=== PATIENT | female | born 1945 | race Caucasian/White ===

== ENCOUNTER 2023-11-05 17:22 | Emergency (ER) | payer MEDICARE, OTHER, SELFPAY ==
[2023-11-05] VITALS (7 sets, daily range): BP systolic 119–121; BP diastolic 58–70; PULSE 79–96; RESP 16–20; TEMP 37.1; O2SAT 90–95; BMI 25.0
--- NOTE | 2023-11-05 17:41 | EKG_ITS ---
[address] [address] Test Date: 2023-11-05 Pat Name: Eunice Ragland Department: Room: Gender: Female Client Architect: Cassidy NUR RN : 1945 Requested By: Order Number: [id number] Reading MD: Castillo Angel MD Measurements Intervals [place] Rate: 95 P: 48 VA: 168 QRS: 7 QRSD: 68 T: 58 QT: 334 QTc: 419 Interpretive Statements Normal sinus rhythm Possible Inferior infarct , age undetermined NO PRIOR TRACING Electronically Signed On 11-05-2023 22:35:39 PDT by Castillo Angel MD
--- NOTE | 2023-11-05 17:41 | DI.RAD.S_ITS ---
PROCEDURE: XR CHEST 1V INDICATIONS: Shortness of breath TECHNIQUE: One view of the chest was acquired. COMPARISON: None. FINDINGS: Surgical changes and devices: Postoperative change of the left shoulder can be seen. Cholecystectomy clips are seen. Lungs and pleura: An incomplete inspiratory result is noted, causing a crowded appearance to the lung markings. No focal infiltrates are seen. Generalized interstitial prominence can be seen. No pneumothorax or significant pleural effusions are seen. Mediastinum: The cardiac contours are within normal limits. The aorta demonstrates calcification and tortuosity. Bones and chest wall: Age-appropriate bony degenerative changes are seen. No suspicious bony lesions. Overlying soft tissues appear unremarkable. IMPRESSION: Generalized interstitial prominence can be seen. Please consider pulmonary edema. Differential diagnosis includes atypical infiltrate, however. Postoperative and degenerative changes are seen. Dictated by: Drew Ruiz M.D. on 11/05/2023 at 17:15 Approved by: Drew Ruiz M.D. on 11/05/2023 at 17:16
[2023-11-05 18:14] LABS: Add Manual Diff / Slide Review NO; Basophils Absolute Auto 100 /uL (0-100); Basophils Percent Auto 0.8 % (0-2); Eosinophils Absolute Auto 200 /uL (0-450); Eosinophils Percent Auto 1.7 % (2-4); Hematocrit 42.4 % (36-46); Hemoglobin 14.5 g/dL (12.0-16.0); Lymphocytes Absolute Auto 1200 /uL (1100-4500); Lymphocytes Percent Auto 9.7 % (25-40); Mean Corpuscular HGB Conc 34.3 % (30-36); Mean Corpuscular Hemoglobin 30.4 PG (26-34); Mean Corpuscular Volume 88.5 fL (80-100); Monocytes Absolute Auto 1300 /uL (0-900); Monocytes Percent Auto 10.1 % (3-14); Neutrophils Absolute Auto 9600 /uL (1500-7000); Neutrophils Percent Auto 77.7 % (50-75); Platelet Count 215 X10^3/uL (150-400); Red Blood Cell Count 4.79 X10^6/uL (4.0-5.2); Red Cell Distribution Width 14.1 % (11.6-14.8); White Blood Cell Count 12.4 X10^3/uL (4.5-11.0)
[2023-11-05 18:19] LABS: INR 1.2 (0.9-1.3); Prothrombin Time 13.6 SECONDS (9.4-12.5)
[2023-11-05 18:22] LABS: Lactate (Lactic Acid) 1.5 mmol/L (0.7-2.1)
[2023-11-05 18:24] LABS: Alanine Aminotransferase 27 IU/L (<35); Albumin 4.1 g/dL (3.5-5.0); Albumin Globulin Ratio 1.2 (1.0-2.8); Alkaline Phosphatase 78 U/L (38-126); Aspartate Aminotransferase 38 IU/L (14-36); BUN Creatinine Ratio 21.6 (6-22); Bilirubin Total 1.1 mg/dL (0.2-1.3); Blood Urea Nitrogen 16 mg/dL (7-17); Calcium 9.6 mg/dL (8.4-10.2); Carbon Dioxide 24 mmol/L (22-32); Chloride 102 mmol/L (98-107); Estimated Glomerular Filt Rate > 60 mL/min (>60); Globulin 3.3 g/dL (1.7-4.1); Glucose 146 mg/dL (80-110); HEMOLYSIS < 15 (0-50); Potassium 4.4 mmol/L (3.4-5.1); Sodium 132 mmol/L (137-145); Total Protein 7.4 g/dL (6.3-8.2)
--- NOTE | 2023-11-05 18:29 | ED_ITS ---
HPI - Abdominal Pain General Chief Complaint: Abdominal Pain Stated Complaint: abd pain Time Seen by Provider: 11/05/23 17:58 Source: patient Mode of arrival: Ambulatory History of Present Illness HPI narrative: 78-year-old female with history of lung cancer status post right lower lobe lobectomy (in remission 6 years), history of valley fever treated with antifungals presents by private vehicle for 4 days of nausea and generalized abdominal pain. Patient states that she has not had very much to eat in the last few days because she has felt lousy and does not want to eat. Also reporting intermittent fevers at home. After 4 days of feeling poorly at home her family convinced her to seek evaluation in the emergency department. Patient states that she felt similar to this several years ago when she was diagnosed with walking pneumonia. Took a home COVID-19 test prior to arrival which was negative. Patient was from [place] and is here on vacation. Surgical history includes cholecystectomy and appendectomy Related Data Previous Rx's Medication Instructions Recorded albuterol sulfate 2.5 mg/3 mL 2.5 mg (3 mL) inhalation Q4-6H PRN 11/05/23 (0.083 %) solution for nebulization shortness of breath or wheezing #90 mL azithromycin 250 mg tablet See Rx Instructions PO .COMPLEX #6 11/05/23 tabs dicyclomine 10 mg capsule 10 mg PO TID #30 caps 11/05/23 nebulizers (Compact Compressor #1 ea 11/05/23 Nebulizer) ondansetron 4 mg disintegrating 4 mg PO Q8H PRN nausea and 11/05/23 tablet vomiting #30 tabs Allergies Allergy/AdvReac Type Severity Reaction Status Date / Time No Known Drug Allergies Allergy Verified 11/05/23 17:41 Patient History Social History Smoking Status: Never smoker Smoking Status: Never smoker Exam Initial Vital Signs Initial Vital Signs: Vital Signs Temperature 98.7 F 11/05/23 17:31 Pulse Rate 79 11/05/23 17:31 Respiratory Rate 16 11/05/23 17:31 Blood Pressure 119/70 11/05/23 17:31 Pulse Oximetry 90 L 11/05/23 17:31 Oxygen Delivery Method Room Air 11/05/23 17:31 Const: Awake, alert, no acute distress, nontoxic appearing Cardiac: regular rate, regular rhythm RESP: unlabored, clear bilaterally, no wheezing GI: Soft, nontender, nondistended, no rebound, no guarding MSK: Atraumatic, full range of motion, pulses equal Skin: Warm, Dry, intact, no rashes Neuro: AO x3, CN II-XII grossly intact, moves all extremities Course Orders Ordered: ED Orders 11/05/23 17:41 XR chest 1V Stat EKG-12 Lead Stat Measure peak expiratory flow ONCE RT Consult Eval and Treat NOW 11/05/23 17:43 Respiratory Panel (Film Array) Stat 11/05/23 18:00 Complete Blood Count AUTO DIFF Stat Comprehensive Metabolic Panel Stat Lactate (Lactic Acid) Stat Lipase Stat NT-proBNP (BNP-Adult 18+) Stat Prothrombin Time INR Stat Troponin I Stat Urine Microscopic Stat 11/05/23 18:28 CT abdomen pelvis w con Stat Discontinued Medications Albuterol/Ipratropium (Albuterol/Ipratropium 3 Ml Ampul) 3 ml INH NOW ONE Stop: 11/05/23 19:21 Sodium Chloride (Normal Saline 0.9%) 1,000 mls @ 1,000 mls/hr IV BOLUS ONE Stop: 11/05/23 19:28 Last Infusion: 11/05/23 20:04 Dose: Infused Documented By: Admin: 11/05/23 18:49 Dose: 1,000 mls/hr Documented By: GARRETT Ondansetron HCl (Ondansetron 4 Mg/2 Ml Inj) 4 mg IV NOW ONE Stop: 11/05/23 18:30 Last Admin: 11/05/23 18:50 Dose: 4 mg Documented By: GARRETT Vital Signs Vital signs: Vital Signs - 8 hr 11/05/23 17:31 11/05/23 18:52 11/05/23 18:54 Temperature 98.7 F Pulse Rate 79 93 H Respiratory Rate 16 Blood Pressure 119/70 Pulse Oximetry 90 L 95 Oxygen Delivery Method Room Air Fraction of Inspired Oxygen 11/05/23 18:54 11/05/23 19:08 11/05/23 19:30 Temperature Pulse Rate 96 H 93 H Respiratory Rate Blood Pressure 121/58 L Pulse Oximetry 94 Oxygen Delivery Method Fraction of Inspired Oxygen 11/05/23 19:40 11/05/23 20:00 Temperature Pulse Rate 90 92 H Respiratory Rate 20 Blood Pressure Pulse Oximetry 93 94 Oxygen Delivery Method Room Air Fraction of Inspired Oxygen 21 MDM - Abdominal Pain Lab Data 11/05/23 18:00 11/05/23 18:00 Labs: Lab Results 11/05/23 11/05/23 Range/Units 17:43 18:00 WBC 12.4 H (4.5-11.0) X10^3/uL RBC 4.79 (4.0-5.2) X10^6/uL Hgb 14.5 (12.0-16.0) g/dL Hct 42.4 (36-46) % MCV 88.5 (80-100) fL MCH 30.4 (26-34) PG MCHC 34.3 (30-36) % RDW 14.1 (11.6-14.8) % Plt Count 215 (150-400) X10^3/uL Neut % (Auto) 77.7 H (50-75) % Lymph % (Auto) 9.7 L (25-40) % [place] % (Auto) 10.1 (3-14) % Eos % (Auto) 1.7 L (2-4) % Baso % (Auto) 0.8 (0-2) % Neut # (Auto) 9600 H (1880-0970) /uL Lymph # (Auto) 1200 (7835-3338) /uL [place] # (Auto) 1300 H (0-900) /uL Eos # (Auto) 200 (0-450) /uL Baso # (Auto) 100 (0-100) /uL PT 13.6 H (9.4-12.5) SECONDS INR 1.2 (0.9-1.3) Sodium 132 L (137-145) mmol/L Potassium 4.4 (3.4-5.1) mmol/L Chloride 102 (98-107) mmol/L Carbon Dioxide 24 (22-32) mmol/L BUN 16 (7-17) mg/dL Creatinine 0.74 (0.52-1.04) mg/dL Estimated GFR > 60 (>60) mL/min BUN/Creatinine Ratio 21.6 (6-22) Glucose 146 H (80-110) mg/dL Lactate 1.5 (0.7-2.1) mmol/L Calcium 9.6 (8.4-10.2) mg/dL Total Bilirubin 1.1 (0.2-1.3) mg/dL AST 38 H (14-36) IU/L ALT 27 (<35) IU/L Alkaline Phosphatase 78 (38-126) U/L Troponin I < 0.012 (0.01-0.034) ng/mL NT-Pro-B Natriuret Pep 177 (<450) pg/mL Total Protein 7.4 (6.3-8.2) g/dL Albumin 4.1 (3.5-5.0) g/dL Globulin 3.3 (1.7-4.1) g/dL Albumin/Globulin Ratio 1.2 (1.0-2.8) Lipase 30 (23-300) U/L Urine RBC None seen (0-5/HPF) Urine WBC None seen (0-5/HPF) Ur Squamous Epith Cells 0-1 /hpf (0-5/HPF) Urine Bacteria Occasional (0-1) (None) Ur Culture Indicated? Cult not indicated Vol Urine Centrifuged Low vol <10ml (spun) A Chlamy pneumoniae PCR Not detected (Not Detect) Adenovirus (PCR) Not detected (Not Detect) B.parapertussis DNA PCR Not detected (Not Detecte) Coronavirus OC43 (PCR) Not detected (Not Detect) Coronavirus HKU1 (PCR) Not detected (Not Detect) Coronavirus 229E (PCR) Not detected (Not Detect) SARS-CoV-2 (PCR) Not detected (Not Detecte) Coronavirus NL63 (PCR) Not detected (Not Detect) Human Metapneumovir PCR Not detected (Not Detect) Influenza Type A (PCR) Not detected (Not Detect) Influenza Type B (PCR) Not detected (Not Detect) M. pneumoniae (PCR) Not detected (Not Detect) Parainfluenza 1 (PCR) Not detected (Not Detect) Parainfluenza 2 (PCR) Not detected (Not Detect) Parainfluenza 3 (PCR) Not detected (Not Detect) Parainfluenza 4 (PCR) Not detected (Not Detect) RSV (PCR) Not detected (Not Detect) Entero/Rhino (PCR) Not detected (Not Detect) Point of care testing: Urine Dip Bedside Urine Glucose Negative Bedside Urine Bilirubin - Negative Bedside Urine Ketone - Negative Urine Specific [place] 1.015 Bedside Urine Occult Blood - Negative Bedside Urine pH 6.0 Bedside Urine Protein +/- 15 Bedside Urine Nitrite - Negative Bedside Urine Leukocytes +/- [address] scan - abdomen/pelvis: Radiologist's Impression: ADDENDUMThis report includes an Addendum and supersedes previous reports for this exam. PROCEDURE: CT ABDOMEN PELVIS W CON INDICATIONS: RUQ/MIDEPIGASTRIC ABD PAIN X4 DAYS, PREV CHOLECYSTECTOMY TECHNIQUE: After the administration of intravenous contrast, axial sections acquired from the lung bases to the pubic symphysis. Coronal and sagittal reformats were performed. For radiation dose reduction, the following was used: automated exposure control, adjustment of mA and/or kV according to patient size. COMPARISON: [facility], CR, XR CHEST 1V, 11/05/2023, 17:41. FINDINGS: Image quality: Diagnostic. Lower Chest: Patchy ground-glass opacities can be seen at the lung bases. The heart size is within normal limits. ABDOMEN: Liver: No solid mass. Gallbladder: Mac row cholecystectomy. Biliary ducts: No biliary dilation. Pancreas: No ductal dilation. Spleen: Size is within normal limits. Adrenal Glands: No adrenal nodules. Kidneys and Ureters: No hydronephrosis. No solid mass. No complex renal cystic lesion which requires follow up. Stomach and Bowel: Normal colonic caliber, without significant wall thickening. Colonic diverticulosis is seen, without findings of active diverticulitis. Peritoneum: No abnormal intraperitoneal fluid. No free air. Ventral Wall: No significant ventral hernia. Abdominal Nodes: No retroperitoneal or mesenteric adenopathy by size criteria. Vessels: Within the proximal abdominal aorta, there is a saccular aneurysm measuring 5.2 cm AP x 4.8 cm transversely, with a craniocaudal extent of 5.2 cm. There is moderate mural thrombus seen . PELVIS: Pelvic Organs: Unremarkable. Bladder: No bladder wall thickening, accounting for underdistention. Pelvic Nodes: No enlarged lymph nodes. Miscellaneous: No inguinal hernias are seen. Bones: No aggressive osseous abnormality. Age-appropriate bony degenerative changes are seen. Mild dextroconvex scoliotic curvature is seen. 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 Patchy ground-glass opacities can be seen at the lung bases. Please consider pulmonary edema. Prior cholecystectomy, without biliary dilatation. Additional findings: Hysterectomy Diverticulosis, without active diverticulitis Dictated by: Drew Ruiz M.D. on 11/05/2023 at 18:18 Approved by: Drew Ruiz M.D. on 11/05/2023 at 18:22 ADDENDUM: This case was reviewed at the request of Dr. Fernandez and discussed by telephone at 7:35 p.m. [place] time on November 05, 2023. The aneurysm is reviewed. No surrounding inflammatory change can be seen. It is felt most likely that this aneurysm is a chronic incidental process. However, this cannot be said with certainty based upon these imaging findings. Dictated by: Drew Ruiz M.D. on 11/05/2023 at 18:36 Approved by: Drew Ruiz M.D. on 11/05/2023 at 18:37 Chest x-ray: Radiologist's Impression: PROCEDURE: XR CHEST 1V INDICATIONS: Shortness of breath TECHNIQUE: One view of the chest was acquired. COMPARISON: None. FINDINGS: Surgical changes and devices: Postoperative change of the left shoulder can be seen. Cholecystectomy clips are seen. Lungs and pleura: An incomplete inspiratory result is noted, causing a crowded appearance to the lung markings. No focal infiltrates are seen. Generalized interstitial prominence can be seen. No pneumothorax or significant pleural effusions are seen. Mediastinum: The cardiac contours are within normal limits. The aorta demonstrates calcification and tortuosity. Bones and chest wall: Age-appropriate bony degenerative changes are seen. No suspicious bony lesions. Overlying soft tissues appear unremarkable. IMPRESSION: Generalized interstitial prominence can be seen. Please consider pulmonary edema. Differential diagnosis includes atypical infiltrate, however. Postoperative and degenerative changes are seen. Dictated by: Drew Ruiz M.D. on 11/05/2023 at 17:15 Approved by: Drew Ruiz M.D. on 11/05/2023 at 17:16 MDM Narrative Medical decision making narrative: Nontoxic appearing patient with several days of symptoms. Initial room oxygen saturations were in the upper 80s to low 90s, however fingers were cold and when pulse ox applied to earlobe saturations improved on room air. Abdomen is soft but she was generally tender to palpation particularly in the upper quadrants. Patient denies urinary symptoms including dysuria, frequency, or hematuria. Laboratory work shows WBC count 12.4, hemoglobin 14.5, platelet count 215, sodium 132, potassium 4.4, creatinine 0.74, lactic acid 1.5, troponin undetectable, BNP with 77. Chest x-ray with diffuse interstitial findings. CT of the abdomen and pelvis shows saccular aneurysm with mural thrombus present. Discussed with Radiology, no surrounding inflammatory changes to suggest acute process. All lab and imaging findings discussed with the patient and her at bedside. Patient and her state that patient's aneurysm is well known to them and followed closely by vascular surgery. She states that her measurements today are unchanged from her chronic measurements, most recently taken in August of 20[address] prior to her road trip up to [place]. Patient reports feeling improved after receiving albuterol and Zofran. Uncertain etiology of patient's abdominal symptoms at this time, however patient states that she is comfortable going home and will return if symptoms worsen. Since patient has interstitial markings on x-ray and felt similar to when she had walking pneumonia several years ago a Z-Abhishek sent to pharmacy of choice along with refills of nebulizers. Patient also requested a nebulizer machine, which was sent to her pharmacy of choice in the region. Discharge Plan Departure Patient Disposition: Home Clinical Impression: Abdominal pain, Nausea Instructions: DI for Abdominal Pain-Adult Activity Restrictions/Additional Instructions: Your laboratory work today did not show any significant concerning findings. Your CT scan did show an aneurysm in your abdomen, which you told me is very well known to you and followed by your vascular surgeon in [place]. There may possibly be infection in your chest, given your history of walking pneumonia a Z-Abhishek was sent to your pharmacy as well as nebulizer vials. Please make sure that you follow up with your specialist when you go back home to [place]. If you feel worse or not improving please feel free to return to the emergency department for repeat evaluation. RX sent to [facility] Prescriptions: New azithromycin 250 mg tablet See Rx Instructions .ROUTE .COMPLEX Qty: 6 0RF Rx Instructions: For 250 mg dose pack: take 500 mg today (day 1), then 250 mg for 4 days (days 2-5) ondansetron 4 mg tablet,disintegrating 4 mg PO Q8H PRN (Reason: nausea and vomiting) Qty: 30 0RF dicyclomine 10 mg capsule 10 mg PO TID Qty: 30 0RF albuterol sulfate 2.5 mg /3 mL (0.083 %) solution for nebulization 2.5 mg inhalation Q4-6H PRN (Reason: shortness of breath or wheezing) Qty: 90 0RF (DME) nebulizers [Compact Compressor Nebulizer] Misc See Rx Instructions .Route Qty: 1 0RF Rx Instructions: As directed Referrals: Miscellaneous,Doctor, MD [Primary Care Provider] - Stand Alone Forms: Patient Portal/API
[2023-11-05 18:35] LABS: NT-proBNP (BNP-Adult 18+) 177 pg/mL (<450); Troponin I < 0.012 ng/mL (0.01-0.034)
[2023-11-05 18:36] LABS: Adenovirus Not Detected (Not Detect); B. parapertussis Not Detected (Not Detecte); Bordetella pertussis Not Detected (Not Detect); Chlamydophila pneumoniae Not Detected (Not Detect); Coronavirus 229E Not Detected (Not Detect); Coronavirus HKU1 Not Detected (Not Detect); Coronavirus NL 63 Not Detected (Not Detect); Coronavirus OC43 Not Detected (Not Detect); Human Metapneumovirus Not Detected (Not Detect); Human Rhinovirus/Enterovirus Not Detected (Not Detect); Influenza A Not Detected (Not Detect); Influenza B Not Detected (Not Detect); Mycoplasma pneumoniae Not Detected (Not Detect); Parainfluenza Virus 1 Not Detected (Not Detect); Parainfluenza Virus 2 Not Detected (Not Detect); Parainfluenza Virus 3 Not Detected (Not Detect); Parainfluenza Virus 4 Not Detected (Not Detect); Respiratory Syncytial Virus Not Detected (Not Detect); SARS- CoV-2 Not Detected (Not Detecte)
[2023-11-05 18:44] LABS: Lipase 30 U/L (23-300)
[2023-11-05] MEDS: SODIUM CHLORIDE 0.9% 1,000 ML 1000 ML IV (18:49)
[2023-11-05] MEDS: ONDANSETRON 4 MG/2 ML INJ IV (18:50)
--- NOTE | 2023-11-05 19:35 | PC.NURSE ---
Patient's pulse ox reading 87-88% RA with finger probe. Transitioned to ear probe and pulse ox 94% on RA.
[2023-11-05 20:28] LABS: RBC Urine None Seen (0-5/HPF); Urine Volume Low Vol <10mL (spun)
[2023-11-05 20:29] LABS: Bacteria Urine Occasional (0-1); Culture Indicated Urine Cult Not Indicated; Squamous Epithelial Cell Urine 0-1 /HPF (0-5/HPF); WBC Urine None Seen (0-5/HPF)
== END 2023-11-05 20:23 | disposition home or self-care (01) ==
PROVIDERS: Emergency Medicine; Emergency Provider Emergency Medicine
DX: R10.84 Generalized abdominal pain (principal); R11.0 Nausea; R50.9 Fever, unspecified; Z11.52 Encounter for screening for COVID-19
CPT/HCPCS: 36415; 71045; 74177; 80053; 81003; 81015; 83605; 83690; 83880; 84484; 85025; 85610; 87633; 93005; 94150; 94640; 99284; J2405; Q9967

== ENCOUNTER 2023-11-10 09:37 | Emergency (ER) | payer MEDICARE, OTHER, SELFPAY ==
[2023-11-10] VITALS (17 sets, daily range): BP systolic 110–130; BP diastolic 59–68; PULSE 67–76; RESP 21–32; TEMP 36.4; O2SAT 84–96; BMI 25.0
--- NOTE | 2023-11-10 09:57 | EKG_ITS ---
[address] [address] Test Date: 2023-11-10 Pat Name: Eunice Ragland Department: [facility] Room: Gender: Female [place]: MINDI : 1945 Requested By: Order Number: [id number] Reading MD: Castillo Angel MD Measurements Intervals [place] Rate: 70 P: 49 [place]: 186 QRS: -7 QRSD: 66 T: 28 QT: 416 QTc: 449 Interpretive Statements Normal sinus rhythm Inferior infarct , age undetermined Electronically Signed On 11-10-2023 11:12:52 PDT by Castillo Angel MD
[2023-11-10] MEDS: ALBUTEROL/IPRATROPIUM 3 ML AMPUL INH (10:16)
--- NOTE | 2023-11-10 10:19 | DI.RAD.S_ITS ---
PROCEDURE: XR CHEST 1V INDICATIONS: Shortness of breath TECHNIQUE: One view of the chest was acquired. COMPARISON: [facility], CR, XR CHEST 1V, 11/05/2023, 17:41. FINDINGS: Surgical changes and devices: Left shoulder suture anchor. Cholecystectomy clips. Lungs and pleura: Small right pleural effusion. Bilateral lung perihilar predominant opacities. Mediastinum: Mediastinal contours appear normal. Heart size is normal. Bones and chest wall: No suspicious bony lesions. Overlying soft tissues appear unremarkable. IMPRESSION: Bilateral lung, perihilar predominant airspace opacities which could represent pulmonary edema and/or multifocal pneumonia. Small right pleural effusion. Dictated by: Ele Ramirez MD, PhD on 11/10/2023 at 10:57 Approved by: Ele Ramirez MD, PhD on 11/10/2023 at 10:58
--- NOTE | 2023-11-10 10:24 | ED.GENADULT ---
HPI - General Adult General Chief complaint: Shortness of Breath/Dyspnea Stated complaint: sick to stomach nausea pills not working Time Seen by Provider: 11/10/23 09:54 Source: patient and family Mode of arrival: Ambulatory History of Present Illness HPI narrative: Patient is a 78-year-old female. 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 was seen here in the emergency department a couple days ago and had a fairly extensive workup and subsequently discharged home. She was here with continued nausea, fatigue, problems breathing, chest discomfort been generally not feeling very well. She has a known aortic aneurism. Has a history of lung cancer. She was currently on azithromycin and steroids. She was here today because she was very fatigued and could not get out of bed this morning. Related Data Previous Rx's Medication Instructions Recorded albuterol sulfate 2.5 mg/3 mL 2.5 mg (3 mL) inhalation Q4-6H PRN 11/05/23 (0.083 %) solution for nebulization shortness of breath or wheezing #90 mL azithromycin 250 mg tablet See Rx Instructions PO .COMPLEX #6 11/05/23 tabs dicyclomine 10 mg capsule 10 mg PO TID #30 caps 11/05/23 nebulizers (Compact Compressor #1 ea 11/05/23 Nebulizer) ondansetron 4 mg disintegrating 4 mg PO Q8H PRN nausea and 11/05/23 tablet vomiting #30 tabs Allergies Allergy/AdvReac Type Severity Reaction Status Date / Time No Known Drug Allergies Allergy Verified 11/10/23 10:01 Review of Systems Review of Systems ROS Unobtainable: All systems reviewed & are unremarkable except as noted in HPI and below Patient History Social History Smoking Status: Never smoker Smoking Status: Never smoker Substance Use Type: does not use Exam Initial Vital Signs Initial Vital Signs: Vital Signs Pulse Rate 74 11/10/23 09:52 Pulse Oximetry 88 L 11/10/23 09:52 Oxygen Delivery Method Nasal Cannula 11/10/23 09:52 Oxygen Flow Rate 2 11/10/23 09:52 Const General: cooperative, comfortable and No ill appearing HENMT Head: normal to inspection and normocephalic Resp Effort & Inspection: normal respiratory effort Auscultation: clear to auscultation bilaterally Cardio Rate: regular rate Rhythm: regular rhythm GI Inspection: normal to inspection and non-distended Skin General: no rashes or lesions noted Neuro General: patient alert, patient awake and moves all extremities Extrem General: normal to inspection Course Orders Ordered: ED Orders 11/10/23 09:57 EKG-12 Lead Stat 11/10/23 10:14 Covid-19 + FLU A/B + RSV - PCR Stat 11/10/23 10:19 XR chest 1V Stat 11/10/23 10:25 BNP [NT-proBNP (BNP-Adult 18+)] Stat Complete Blood Count AUTO DIFF Stat Comprehensive Metabolic Panel Stat Lactate (Lactic Acid) Stat Lipase Stat PTT Partial Thromboplastin Real Stat Prothrombin Time INR Stat Troponin & CK Cardiac Panel Stat Troponin & CK Cardiac Panel Stat 11/10/23 11:10 CT angio chest PE protocol Stat 11/10/23 12:28 Urine Culture Stat Urine Microscopic Stat 11/10/23 18:30 PTT Partial Thromboplastin Real Q6H 11/10/23 19:00 PTT Partial Thromboplastin Real Q6H 11/11/23 00:30 PTT Partial Thromboplastin Real Q6H 11/11/23 05:00 Hemoglobin and Hematocrit DAILY Platelet Count DAILY 11/11/23 06:30 PTT Partial Thromboplastin Real Q6H 11/12/23 05:00 Hemoglobin and Hematocrit DAILY Platelet Count DAILY Heparin Sodium/Dextrose (Heparin Drip) 25,000 unit in 500 mls @ 24.494 mls/hr IV CONT PAYAM; Protocol Last Admin: 11/10/23 12:57 Dose: 18 units/kg/hr, 24.494 mls/hr Documented By: CHARLA Co-signed By: WALLACE Discontinued Medications Acetaminophen (Acetaminophen 325 Mg Tablet) 650 mg PO NOW ONE Stop: 11/10/23 12:38 Last Admin: 11/10/23 12:57 Dose: 650 mg Documented By: CHARLA Albuterol/Ipratropium (Albuterol/Ipratropium 3 Ml Ampul) 3 ml INH NOW ONE Stop: 11/10/23 10:14 Last Admin: 11/10/23 10:16 Dose: 3 ml Documented By: KAT Heparin Sodium (Porcine) (Heparin 5,000 Unit/Ml Vial) 5,500 unit 80 unit/kg (5500 unit) IV NOW ONE Stop: 11/10/23 12:21 Last Admin: 11/10/23 12:59 Dose: 5,500 unit Documented By: CHARLA Sodium Chloride (Normal Saline 0.9%) 1,000 mls @ 500 mls/hr IV BOLUS ONE Stop: 11/10/23 11:55 Last Infusion: 11/10/23 13:05 Dose: Infused Documented By: Admin: 11/10/23 10:32 Dose: 500 mls/hr Documented By: CHARLA Ondansetron HCl (Ondansetron 4 Mg/2 Ml Inj) 4 mg IV NOW ONE Stop: 11/10/23 09:58 Last Admin: 11/10/23 10:32 Dose: 4 mg Documented By: CHARLA Vital Signs Vital signs: Vital Signs - 8 hr 11/10/23 09:52 11/10/23 09:55 11/10/23 10:00 Temperature 97.5 F L Pulse Rate 74 75 70 Respiratory Rate 22 24 Blood Pressure 130/62 Pulse Oximetry 88 L 85 L 95 Oxygen Delivery Method Nasal Cannula Room Air Nasal Cannula Oxygen Flow Rate 2 2 11/10/23 10:16 11/10/23 10:30 11/10/23 11:00 Temperature Pulse Rate 71 67 67 Respiratory Rate 22 28 H 26 H Blood Pressure Pulse Oximetry 96 94 92 Oxygen Delivery Method Nasal Cannula Nasal Cannula Oxygen Flow Rate 2 2 11/10/23 11:30 11/10/23 11:59 11/10/23 11:59 Temperature Pulse Rate 70 74 Respiratory Rate 32 H 22 Blood Pressure 129/60 Pulse Oximetry 92 85 L Oxygen Delivery Method Nasal Cannula Oxygen Flow Rate 2 11/10/23 12:00 11/10/23 12:00 11/10/23 12:30 Temperature Pulse Rate 74 76 Respiratory Rate 25 H 23 Blood Pressure 127/61 Pulse Oximetry 92 84 L Oxygen Delivery Method Nasal Cannula Nasal Cannula Oxygen Flow Rate 2 2 11/10/23 13:00 11/10/23 13:01 11/10/23 13:01 Temperature Pulse Rate 74 75 Respiratory Rate 27 H 27 H Blood Pressure 113/61 Pulse Oximetry 95 94 Oxygen Delivery Method Nasal Cannula Oxygen Flow Rate 2 11/10/23 13:30 11/10/23 14:00 11/10/23 14:08 Temperature Pulse Rate 75 73 71 Respiratory Rate 25 H 25 H 21 Blood Pressure Pulse Oximetry 93 94 93 Oxygen Delivery Method Nasal Cannula Oxygen Flow Rate 2 11/10/23 14:08 11/10/23 14:30 11/10/23 14:30 Temperature Pulse Rate 70 Respiratory Rate 28 H Blood Pressure 116/59 L 119/67 Pulse Oximetry 92 Oxygen Delivery Method Oxygen Flow Rate Medical Decision Making Lab Data Lab results reviewed: Yes I reviewed the patient's lab results. 11/10/23 10:25 11/10/23 10:25 Labs: Lab Results 11/10/23 11/10/23 11/10/23 Range/Units 10:14 10:25 10:25 WBC 13.7 H (4.5-11.0) X10^3/uL RBC 4.33 (4.0-5.2) X10^6/uL Hgb 13.1 (12.0-16.0) g/dL Hct 38.5 (36-46) % MCV 89.0 (80-100) fL MCH 30.2 (26-34) PG MCHC 33.9 (30-36) % RDW 14.1 (11.6-14.8) % Plt Count 215 (150-400) X10^3/uL Neut % (Auto) 87.6 H (50-75) % Lymph % (Auto) 6.0 L (25-40) % [place] % (Auto) 5.7 (3-14) % Eos % (Auto) 0.4 L (2-4) % Baso % (Auto) 0.3 (0-2) % Neut # (Auto) 01268 H (3153-2557) /uL Lymph # (Auto) 800 L (2138-8181) /uL [place] # (Auto) 800 (0-900) /uL Eos # (Auto) 100 (0-450) /uL Baso # (Auto) 0 (0-100) /uL PT 15.2 H (9.4-12.5) SECONDS INR 1.3 (0.9-1.3) APTT 27 (25.1-36.5) SECONDS Sodium 131 L (137-145) mmol/L Potassium 5.0 (3.4-5.1) mmol/L Chloride 101 (98-107) mmol/L Carbon Dioxide 24 (22-32) mmol/L BUN 29 H (7-17) mg/dL Creatinine 0.80 (0.52-1.04) mg/dL Estimated GFR > 60 (>60) mL/min BUN/Creatinine Ratio 36.3 H (6-22) Glucose 179 H (80-110) mg/dL Lactate 1.8 (0.7-2.1) mmol/L Calcium 8.6 (8.4-10.2) mg/dL Total Bilirubin 1.2 (0.2-1.3) mg/dL AST 105 H (14-36) IU/L ALT 126 H (<35) IU/L Alkaline Phosphatase 102 (38-126) U/L Total Creatine Kinase 63 64 (30-135) U/L Troponin I 0.149 H* (0.01-0.034) ng/mL NT-Pro-B Natriuret Pep (<450) pg/mL Total Protein (6.3-8.2) g/dL Albumin (3.5-5.0) g/dL Globulin (1.7-4.1) g/dL Albumin/Globulin Ratio (1.0-2.8) Lipase (23-300) U/L Urine RBC (0-5/HPF) Urine WBC (0-5/HPF) Ur Squamous Epith Cells (0-5/HPF) Urine Bacteria (None) Ur Culture Indicated? Vol Urine Centrifuged SARS-CoV-2 (PCR) Negative (Negative) Influenza A (RT-PCR) Flu a negative (NEGATIVE) Influenza B (RT-PCR) Flu b negative (NEGATIVE) RSV (PCR) Negative (Negative) 11/10/23 11/10/23 Range/Units 10:25 12:28 WBC (4.5-11.0) X10^3/uL RBC (4.0-5.2) X10^6/uL Hgb (12.0-16.0) g/dL Hct (36-46) % MCV (80-100) fL MCH (26-34) PG MCHC (30-36) % RDW (11.6-14.8) % Plt Count (150-400) X10^3/uL Neut % (Auto) (50-75) % Lymph % (Auto) (25-40) % [place] % (Auto) (3-14) % Eos % (Auto) (2-4) % Baso % (Auto) (0-2) % Neut # (Auto) (1577-2009) /uL Lymph # (Auto) (0503-2723) /uL [place] # (Auto) (0-900) /uL Eos # (Auto) (0-450) /uL Baso # (Auto) (0-100) /uL PT (9.4-12.5) SECONDS INR (0.9-1.3) APTT (25.1-36.5) SECONDS Sodium (137-145) mmol/L Potassium (3.4-5.1) mmol/L Chloride (98-107) mmol/L Carbon Dioxide (22-32) mmol/L BUN (7-17) mg/dL Creatinine (0.52-1.04) mg/dL Estimated GFR (>60) mL/min BUN/Creatinine Ratio (6-22) Glucose (80-110) mg/dL Lactate (0.7-2.1) mmol/L Calcium (8.4-10.2) mg/dL Total Bilirubin (0.2-1.3) mg/dL AST (14-36) IU/L ALT (<35) IU/L Alkaline Phosphatase (38-126) U/L Total Creatine Kinase (30-135) U/L Troponin I 0.152 H* (0.01-0.034) ng/mL NT-Pro-B Natriuret Pep 1530 H (<450) pg/mL Total Protein 6.6 (6.3-8.2) g/dL Albumin 3.4 L (3.5-5.0) g/dL Globulin 3.2 (1.7-4.1) g/dL Albumin/Globulin Ratio 1.1 (1.0-2.8) Lipase 62 D (23-300) U/L Urine RBC None seen (0-5/HPF) Urine WBC 5-10/hpf H (0-5/HPF) Ur Squamous Epith Cells 10-30 /hpf H D (0-5/HPF) Urine Bacteria Many (>30) H (None) Ur Culture Indicated? Specimen cultured Vol Urine Centrifuged 10ml (spun) SARS-CoV-2 (PCR) (Negative) Influenza A (RT-PCR) (NEGATIVE) Influenza B (RT-PCR) (NEGATIVE) RSV (PCR) (Negative) Urine Dip Bedside Urine Glucose Negative Bedside Urine Bilirubin - Negative Bedside Urine Ketone - Negative Urine Specific [place] 1.010 Bedside Urine Occult Blood - Negative Bedside Urine pH 6.0 Bedside Urine Protein - Negative Bedside Urine Urobilinogen - Negative Bedside Urine Nitrite - Negative Bedside Urine Leukocytes +/- 15 Esterase Point of care testing: Urine Dip Bedside Urine Glucose Negative Bedside Urine Bilirubin - Negative Bedside Urine Ketone - Negative Urine Specific [place] 1.010 Bedside Urine Occult Blood - Negative Bedside Urine pH 6.0 Bedside Urine Protein - Negative Bedside Urine Urobilinogen - Negative Bedside Urine Nitrite - Negative Bedside Urine Leukocytes +/- 15 Esterase Imaging Data Chest x-ray: Radiologist's Impression: ROCEDURE: XR CHEST 1V INDICATIONS: Shortness of breath TECHNIQUE: One view of the chest was acquired. COMPARISON: [facility], CR, XR CHEST 1V, 11/05/2023, 17:41. FINDINGS: Surgical changes and devices: Left shoulder suture anchor. Cholecystectomy clips. Lungs and pleura: Small right pleural effusion. Bilateral lung perihilar predominant opacities. Mediastinum: Mediastinal contours appear normal. Heart size is normal. Bones and chest wall: No suspicious bony lesions. Overlying soft tissues appear unremarkable. IMPRESSION: Bilateral lung, perihilar predominant airspace opacities which could represent pulmonary edema and/or multifocal pneumonia. Small right pleural effusion. CT scan - chest: Radiologist's Impression: PROCEDURE: CT ANGIO CHEST PE PROTOCOL INDICATIONS: Chest pain, shortness of breath, tachycardia TECHNIQUE: After the administration of intravenous contrast, 2 mm thick sections acquired from the pulmonary apices to the posterior costophrenic angles. 3-dimensional maximum intensity projection (MIP) coronal and sagittal reformats were then acquired through the thorax. For radiation dose reduction, the following was used: automated exposure control, adjustment of mA and/or kV according to patient size. COMPARISON: [facility], CT, CT ABDOMEN PELVIS W CON, 11/05/2023, 18:50. FINDINGS: Image quality: Diagnostic. Pulmonary arteries: Intermediate sized saddle embolus in the right pulmonary artery extending into the right upper lobe are and right middle lobar pulmonary arteries. Lower Neck: No enlarged lymph nodes. Thyroid: No thyroid nodules which require sonographic follow up, per consensus guidelines. Axillae: No enlarged lymph nodes. Chest Wall: Unremarkable. Bones: Unremarkable. Lungs and Pleura: No pneumothorax or pleural effusions. Interstitial thickening in the periphery of the lungs.. Scattered mild ground-glass opacities in the bilateral lungs. Heart: Heart size is normal. Atherosclerotic calcifications in the coronary vasculature. No pericardial effusion. Thoracic Vessels: No aortic aneurysm. Mediastinum and Bebe: No enlarged lymph nodes. Esophagus: No wall thickening. No hiatal hernia. Upper Abdomen: No acute disease process in the visualized abdomen. 5.2 centimeter proximal abdominal aortic aneurysm is without significant change compared to November 05, 2023. IMPRESSION: Nonocclusive saddle pulmonary embolus involving distal right pulmonary artery, right upper lobar pulmonary artery and right middle lobar pulmonary pulmonary artery. Peripheral interstitial thickening likely related to chronic interstitial lung disease. Bilateral lung ground-glass opacities which could be related to chronic interstitial lung disease, pulmonary edema or atypical pneumonia. Stable 5.2 centimeter proximal abdominal aortic aneurysm. Findings telephoned to Dr. Malik on November 10, 2023 at 12:17 p.m. ECG Data Attestation: I personally reviewed and interpreted this ECG as follows: Interpretation: Sinus rhythm Ventricular rate is 70 Normal axis Normal QRS Normal QTC No ST T wave changes MDM Narrative Medical decision making narrative: Patient has been hypoxic to the mid 80s and low 90s on room air. Has an elevated troponin and a BNP with a nonischemic EKG and no chest pain. Has a right-sided pulmonary embolism that was found on the CT scan today. Has been on antibiotics and steroids since the last time she was here in the emergency department. She also has ground-glass opacities noted on the lung candelario. Patient was started on heparin secondary to the pulmonary embolism. She was nontoxic appearing. Has not been hypotensive. Discussed the case with Dr. Rodriguez ostomy rn at [facility] who accepts the patient in transfer. Patient does need transfer for higher level of care and specialists evaluation. Discussed the need for transfer with the patient. She expressed understanding and agreement as well. Critical Care Time Critical Care Time Critical Care Time: Yes Total Critical Care Time: 34 Attestation: The high probability of a clinically significant, sudden or life threatening deterioration of the [respiratory/cardiovascular] system(s) required my full and direct attention, intervention and personal management. The aggregate critical care time was [34] minutes. This time is in addition to time spent performing reported procedures but includes the following: [x] Data Review and interpretation [x] Patient assessment and monitoring of vital signs [x] Documentation [x] Medication orders and management Discharge Plan Departure Patient Disposition: [facility] Clinical Impression: Pulmonary embolism, Hypoxia Prescriptions: No Action azithromycin 250 mg tablet See Rx Instructions .ROUTE .COMPLEX Qty: 6 0RF Rx Instructions: For 250 mg dose pack: take 500 mg today (day 1), then 250 mg for 4 days (days 2-5) ondansetron 4 mg tablet,disintegrating 4 mg PO Q8H PRN (Reason: nausea and vomiting) Qty: 30 0RF dicyclomine 10 mg capsule 10 mg PO TID Qty: 30 0RF albuterol sulfate 2.5 mg /3 mL (0.083 %) solution for nebulization 2.5 mg inhalation Q4-6H PRN (Reason: shortness of breath or wheezing) Qty: 90 0RF (DME) nebulizers [Compact Compressor Nebulizer] Misc See Rx Instructions .Route Qty: 1 0RF Rx Instructions: As directed Referrals: Miscellaneous,Doctor, [Primary Care Provider] -
[2023-11-10] MEDS: SODIUM CHLORIDE 0.9% 1,000 ML 500 ML IV (10:32)
[2023-11-10] MEDS: ONDANSETRON 4 MG/2 ML INJ IV (10:32)
[2023-11-10 10:36] LABS: Add Manual Diff / Slide Review NO; Basophils Absolute Auto 0 /uL (0-100); Basophils Percent Auto 0.3 % (0-2); Eosinophils Absolute Auto 100 /uL (0-450); Eosinophils Percent Auto 0.4 % (2-4); Hematocrit 38.5 % (36-46); Hemoglobin 13.1 g/dL (12.0-16.0); Lymphocytes Absolute Auto 800 /uL (1100-4500); Mean Corpuscular HGB Conc 33.9 % (30-36); Mean Corpuscular Hemoglobin 30.2 PG (26-34); Monocytes Absolute Auto 800 /uL (0-900); Monocytes Percent Auto 5.7 % (3-14); Neutrophils Absolute Auto 12000 /uL (1500-7000); Neutrophils Percent Auto 87.6 % (50-75); Platelet Count 215 X10^3/uL (150-400); Red Blood Cell Count 4.33 X10^6/uL (4.0-5.2); Red Cell Distribution Width 14.1 % (11.6-14.8); White Blood Cell Count 13.7 X10^3/uL (4.5-11.0)
[2023-11-10 10:50] LABS: Alanine Aminotransferase 126 IU/L (<35); Albumin 3.4 g/dL (3.5-5.0); Albumin Globulin Ratio 1.1 (1.0-2.8); Alkaline Phosphatase 102 U/L (38-126); Aspartate Aminotransferase 105 IU/L (14-36); BUN Creatinine Ratio 36.3 (6-22); Bilirubin Total 1.2 mg/dL (0.2-1.3); Blood Urea Nitrogen 29 mg/dL (7-17); Calcium 8.6 mg/dL (8.4-10.2); Carbon Dioxide 24 mmol/L (22-32); Chloride 101 mmol/L (98-107); Creatine Kinase 63 U/L (30-135); Estimated Glomerular Filt Rate > 60 mL/min (>60); Globulin 3.2 g/dL (1.7-4.1); Glucose 179 mg/dL (80-110); Lipase 62 U/L (23-300); Sodium 131 mmol/L (137-145); Total Protein 6.6 g/dL (6.3-8.2)
[2023-11-10 10:51] LABS: HEMOLYSIS 142 (0-50); Lactate (Lactic Acid) 1.8 mmol/L (0.7-2.1)
[2023-11-10 11:03] LABS: Troponin I 0.149 ng/mL (0.01-0.034)
--- NOTE | 2023-11-10 11:10 | DI.CT.S_ITS ---
PROCEDURE: CT ANGIO CHEST PE PROTOCOL INDICATIONS: Chest pain, shortness of breath, tachycardia TECHNIQUE: After the administration of intravenous contrast, 2 mm thick sections acquired from the pulmonary apices to the posterior costophrenic angles. 3-dimensional maximum intensity projection (MIP) coronal and sagittal reformats were then acquired through the thorax. For radiation dose reduction, the following was used: automated exposure control, adjustment of mA and/or kV according to patient size. COMPARISON: [facility], CT, CT ABDOMEN PELVIS W CON, 11/05/2023, 18:50. FINDINGS: Image quality: Diagnostic. Pulmonary arteries: Intermediate sized saddle embolus in the right pulmonary artery extending into the right upper lobe are and right middle lobar pulmonary arteries. Lower Neck: No enlarged lymph nodes. Thyroid: No thyroid nodules which require sonographic follow up, per consensus guidelines. Axillae: No enlarged lymph nodes. Chest Wall: Unremarkable. Bones: Unremarkable. Lungs and Pleura: No pneumothorax or pleural effusions. Interstitial thickening in the periphery of the lungs.. Scattered mild ground-glass opacities in the bilateral lungs. Heart: Heart size is normal. Atherosclerotic calcifications in the coronary vasculature. No pericardial effusion. Thoracic Vessels: No aortic aneurysm. Mediastinum and Bebe: No enlarged lymph nodes. Esophagus: No wall thickening. No hiatal hernia. Upper Abdomen: No acute disease process in the visualized abdomen. 5.2 centimeter proximal abdominal aortic aneurysm is without significant change compared to November 05, 2023. IMPRESSION: Nonocclusive saddle pulmonary embolus involving distal right pulmonary artery, right upper lobar pulmonary artery and right middle lobar pulmonary pulmonary artery. Peripheral interstitial thickening likely related to chronic interstitial lung disease. Bilateral lung ground-glass opacities which could be related to chronic interstitial lung disease, pulmonary edema or atypical pneumonia. Stable 5.2 centimeter proximal abdominal aortic aneurysm. Findings telephoned to Dr. Malik on November 10, 2023 at 12:17 p.m.. Dictated by: Ele Ramirez MD, PhD on 11/10/2023 at 12:09 Approved by: Ele Ramirez MD, PhD on 11/10/2023 at 12:20
[2023-11-10 11:28] LABS: NT-proBNP (BNP-Adult 18+) 1530 pg/mL (<450)
[2023-11-10 11:30] LABS: Influenza A - CEPHEID Flu A NEGATIVE (NEGATIVE); Influenza B - CEPHEID Flu B NEGATIVE (NEGATIVE); Respiratory Syncytial Virus Negative (Negative)
[2023-11-10 11:32] LABS: COVID-19 CEPHEID 4-PLEX PCR Negative (Negative)
[2023-11-10 12:31] LABS: INR 1.3 (0.9-1.3); Prothrombin Time 15.2 SECONDS (9.4-12.5)
[2023-11-10 12:33] LABS: PTT Partial Thromboplastin Tim 27 SECONDS (25.1-36.5)
[2023-11-10 12:34] LABS: Creatine Kinase 64 U/L (30-135)
[2023-11-10 12:49] LABS: Troponin I 0.152 ng/mL (0.01-0.034)
[2023-11-10] MEDS: HEPARIN DRIP 25,000 UNIT/500 ML IV.SOLN 24.494 UNIT IV (12:57)
[2023-11-10] MEDS: ACETAMINOPHEN 325 MG TABLET 650 MG PO (12:57)
[2023-11-10] MEDS: HEPARIN 5,000 UNIT/ML VIAL 5500 UNIT IV (12:59)
[2023-11-10 13:09] LABS: Bacteria Urine Many (>30); Culture Indicated Urine Specimen Cultured; RBC Urine None Seen (0-5/HPF); Squamous Epithelial Cell Urine 10-30 /HPF (0-5/HPF); Urine Volume 10mL (spun); WBC Urine 5-10/HPF (0-5/HPF)
--- NOTE | 2023-11-10 13:42 | PC.NURSE ---
Addendum entered by Millie Nielsen CNA 11/10/23 14:18: [id number]- [facility], spoke with Cathy, patient on wait list Original Note: Hospital Call List for patient transfer [id number]- [facility], spoke with Jacquie, patient on wait list 1255- [facility], spoke with Stefanie, patient on wait list [id number]- [facility], spoke with Dmitry, patient on wait list at [facility]
== END 2023-11-10 15:30 | disposition short-term general hospital (02) ==
PROVIDERS: Emergency Provider Emergency Medicine
DX: I26.99 Other pulmonary embolism without acute cor pulmonale (principal); R09.02 Hypoxemia; R00.0 Tachycardia, unspecified; R79.89 Other specified abnormal findings of blood chemistry; Z11.52 Encounter for screening for COVID-19
CPT/HCPCS: 0241U; 36415; 51798; 71045; 71275; 80053; 81003; 81015; 82550; 83605; 83690; 83880; 84484; 85025; 85610; 85730; 87086; 93005; 94640; 96365; 96366; 96375; 99285; 99291; J1644; J2405; Q9967